=== PATIENT | male | born 1980 | race Caucasian/White ===

== ENCOUNTER 2022-12-10 15:29 | Inpatient (IN) | payer MEDICARE, MEDICAID ==
[~2022-12-10] VITALS: Ht 177.8 cm; Wt 88.3 kg
[~2022-12-10 15:29] MED LIST: PALI6TAB15 PO
[2022-12-10 17:43] LABS: BASOPHILS % (AUTO) 0.7 % (0.0-2.0); EOSINOPHILS % (AUTO) 1.8 % (1.0-6.0); HEMATOCRIT 34.3 % (41-53); HEMOGLOBIN 11.3 g/dL (13.5-17.5); LYMPHOCYTES # (AUTO) 1.9 K/uL (1.0-4.8); LYMPHOCYTES % (AUTO) 10.9 % (22.0-44.0); MEAN CORPUSCULAR HEMOGLOBIN 28.8 pg (26.0-34.0); MEAN CORPUSCULAR VOLUME 87 fL (80-100); MONOCYTES # (AUTO) 1.4 K/uL (0.1-1.0); MONOCYTES % (AUTO) 8.3 % (2.0-9.0); NEUTROPHILS # (AUTO) 13.3 K/uL (1.8-7.7); NEUTROPHILS % (AUTO) 78.3 % (40.0-70.0); PLATELET COUNT (AUTO) 483 K/uL (150-450); RED BLOOD CELL COUNT(AUTO) 3.94 MIL/uL (4.50-5.90); RED CELL DISTRIBUTION WIDTH 14.8 % (11.5-14.5)
[2022-12-10 17:51] LABS: ANION GAP 7 mmol/L (8-16); CALCIUM, TOTAL 9.1 mg/dL (8.8-10.5); CARBON DIOXIDE 27 mmol/L (22-29); CHLORIDE 102 mmol/L (98-107); CREATININE 0.92 mg/dL (0.60-1.30); GLOMERULAR FILTR. RATE CALC > 60 mL/min (>60); GLUCOSE,RANDOM 137 mg/dL (70-110); POTASSIUM 3.1 mmol/L (3.5-5.1); SODIUM SERUM 136 mmol/L (136-145)
[2022-12-10 17:57] LABS: ALANINE AMINOTRANSFERASE 12 U/L (12-78); ALBUMIN 2.4 g/dL (3.4-5.0); ALKALINE PHOSPHATASE 70 U/L (46-116); ASPARTATE AMINOTRANSFERASE 14 U/L (15-37); BILIRUBIN,TOTAL 0.2 mg/dL (0.1-1.0); TOTAL PROTEIN, SERUM 7.4 g/dL (6.4-8.2)
[2022-12-10 18:01] LABS: COVID AG,FIA SOURCE NASAL SWAB
[2022-12-10] MEDS ORDERED: SODIUM,POTASSIUM PHOSPHATES POWDER PACKET PO ONE (19:00)
[2022-12-10] MEDS ORDERED: HALOPERIDOL 5 MG TABLET PO ONE (19:00)
[2022-12-10] MEDS ORDERED: LORazepam 1 MG TABLET PO ONE (19:00)
[2022-12-10] MEDS ORDERED: DiphenhydrAMINE HCL 25 MG CAPSULE PO ONE (19:00)
[2022-12-10] MEDS ORDERED: DiphenhydrAMINE HCL 50 MG/ML VIAL IM ONE (19:30)
[2022-12-10] MEDS ORDERED: HALOPERIDOL LACTATE 5 MG/ML VIAL IM ONE (19:30)
[2022-12-10] MEDS ORDERED: POTASSIUM CHLORIDE 20 MEQ ER TABLET PO ONE ×2 (19:30→21:45)
[2022-12-10] MEDS ORDERED: LORazepam 2 MG/ML VIAL IM ONE (19:30)
[2022-12-10] MEDS ORDERED: ZOLPIDEM TARTRATE 10 MG TABLET PO PRN (20:00)
[2022-12-11] MEDS: CEPHALEXIN MONOHYDRATE 500 MG CAPSULE PO SCH ×2 (06:53)
[2022-12-11 19:16] VITALS: BP 104/69; PULSE 103
[2022-12-11 23:00] VITALS: RESP 18
[2022-12-11] MEDS ORDERED: HALOPERIDOL LACTATE 5 MG/ML VIAL IM ONE (23:15)
[2022-12-11] MEDS ORDERED: LORazepam 2 MG/ML VIAL IM ONE (23:15)
[2022-12-11] MEDS ORDERED: DiphenhydrAMINE HCL 50 MG/ML VIAL IM ONE (23:15)
[2022-12-12] MEDS ORDERED: ONDANSETRON HCL 4 MG TABLET PO PRN (08:00)
[2022-12-12] MEDS ORDERED: MAGNESIUM HYDROXIDE SUSPENSION 30 ML UDCUP PO PRN (08:00)
[2022-12-12] MEDS ORDERED: GuaiFENesin/D-METHORPHAN [SUGAR-FREE] 200-20MG/10 ML SYRUP UDCUP PO PRN (08:00)
[2022-12-12] MEDS ORDERED: IBUPROFEN 400 MG TABLET PO PRN (08:00)
[2022-12-12] MEDS ORDERED: DOCUSATE SODIUM 100 MG CAPSULE PO PRN (08:00)
[2022-12-12] MEDS ORDERED: LOPERAMIDE HCL 2 MG CAPSULE PO PRN (08:00)
[2022-12-12] MEDS ORDERED: PETROLATUM,WHITE 28 GM JELLY TP PRN (08:00)
[2022-12-12] MEDS ORDERED: CloNIDine HCL 0.1 MG TABLET PO PRN (08:00)
[2022-12-12] MEDS ORDERED: ACETAMINOPHEN 325 MG TABLET PO PRN (08:00)
[2022-12-12] MEDS ORDERED: MAG HYDROX/AL HYDROX/SIMETH ES 30 ML SUSPENSION UDCUP PO PRN (08:00)
[2022-12-12] MEDS ORDERED: ALBUTEROL SULFATE HFA 90 MCG/PUFF 8 GM INHALER IH PRN (08:00)
[2022-12-12] MEDS: CEPHALEXIN MONOHYDRATE 500 MG CAPSULE PO SCH ×3 (08:41→16:32)
[2022-12-12] MEDS ORDERED: DIVA500T53 PO (12:07)
[2022-12-12] MEDS: RisperiDONE 2 MG TABLET PO SCH ×2 (12:49→21:00)
[2022-12-12] MEDS: DIVALPROEX SODIUM 500 MG ER TABLET PO SCH ×2 (12:49→21:00)
[2022-12-12] MEDS ORDERED: LORazepam 2 MG/ML VIAL IM ONE ×2 (16:45→19:30)
[2022-12-12] MEDS ORDERED: DiphenhydrAMINE HCL 50 MG/ML VIAL IM ONE ×2 (16:45→19:30)
[2022-12-12] MEDS ORDERED: HALOPERIDOL LACTATE 5 MG/ML VIAL IM ONE ×2 (16:45→19:30)
[2022-12-12] MEDS: NICOTINE 14 MG/24 HOUR PATCH TD PRN (17:05)
[2022-12-12 20:22] VITALS: RESP 20
[2022-12-13 08:40] VITALS: RESP 18
[2022-12-13] MEDS: RisperiDONE 2 MG TABLET PO SCH ×2 (08:51→21:00)
[2022-12-13] MEDS: DIVALPROEX SODIUM 500 MG ER TABLET PO SCH ×2 (08:51→21:00)
[2022-12-13] MEDS: CEPHALEXIN MONOHYDRATE 500 MG CAPSULE PO SCH ×3 (08:51→16:59)
[2022-12-13] MEDS: LORazepam 2 MG TABLET PO PRN (08:51)
[2022-12-13] MEDS ORDERED: HALOPERIDOL LACTATE 5 MG/ML VIAL ONE (17:06)
[2022-12-13] MEDS ORDERED: LORazepam 2 MG/ML VIAL ONE (17:06)
[2022-12-13] MEDS ORDERED: DiphenhydrAMINE HCL 50 MG/ML VIAL ONE (17:06)
[2022-12-13] MEDS ORDERED: HALOPERIDOL LACTATE 5 MG/ML VIAL IM ONE (17:15)
[2022-12-13] MEDS ORDERED: LORazepam 2 MG/ML VIAL IM ONE (17:15)
[2022-12-13] MEDS ORDERED: DiphenhydrAMINE HCL 50 MG/ML VIAL IM ONE (17:15)
[2022-12-13 20:01] VITALS: RESP 20
[2022-12-14 08:25] VITALS: RESP 18; TEMP 98.2
[2022-12-14] MEDS: LORazepam 2 MG TABLET PO PRN ×2 (11:07→18:26)
[2022-12-14] MEDS: HALOPERIDOL 5 MG TABLET PO PRN ×2 (11:08→18:27)
[2022-12-14] MEDS: CEPHALEXIN MONOHYDRATE 500 MG CAPSULE PO SCH ×3 (11:08→18:26)
[2022-12-14] MEDS: DIVALPROEX SODIUM 500 MG ER TABLET PO SCH ×2 (11:08→20:39)
[2022-12-14] MEDS: RisperiDONE 2 MG TABLET PO SCH ×2 (11:08→20:40)
[2022-12-14] MEDS: NICOTINE 14 MG/24 HOUR PATCH TD PRN (17:53)
[2022-12-14] MEDS ORDERED: HALOPERIDOL LACTATE 5 MG/ML VIAL IM ONE (20:00)
[2022-12-14] MEDS ORDERED: DiphenhydrAMINE HCL 50 MG/ML VIAL IM ONE (20:00)
[2022-12-14] MEDS ORDERED: LORazepam 2 MG/ML VIAL IM ONE (20:00)
[2022-12-14 20:31] VITALS: RESP 20
[2022-12-15 08:21] VITALS: RESP 18; TEMP 96.9
[2022-12-15] MEDS: DIVALPROEX SODIUM 500 MG ER TABLET PO SCH ×2 (09:18→20:42)
[2022-12-15] MEDS: CEPHALEXIN MONOHYDRATE 500 MG CAPSULE PO SCH ×3 (09:18→17:18)
[2022-12-15] MEDS: RisperiDONE 2 MG TABLET PO SCH ×2 (09:18→20:42)
[2022-12-15] MEDS: LORazepam 2 MG TABLET PO PRN ×3 (10:02→20:42)
[2022-12-15] MEDS: HALOPERIDOL 5 MG TABLET PO PRN ×2 (10:02→15:13)
[2022-12-15] MEDS: NICOTINE 14 MG/24 HOUR PATCH TD PRN (16:55)
[2022-12-15 20:17] VITALS: RESP 20
[2022-12-16] MEDS: HALOPERIDOL 5 MG TABLET PO PRN ×4 (03:39→18:09)
[2022-12-16] MEDS: LORazepam 2 MG TABLET PO PRN ×4 (03:39→18:08)
[2022-12-16] MEDS: CEPHALEXIN MONOHYDRATE 500 MG CAPSULE PO SCH ×3 (07:41→18:09)
[2022-12-16] MEDS: RisperiDONE 2 MG TABLET PO SCH ×2 (07:42→20:39)
[2022-12-16] MEDS: DIVALPROEX SODIUM 500 MG ER TABLET PO SCH ×2 (07:42→20:39)
[2022-12-16 09:24] VITALS: RESP 18
[2022-12-16] MEDS ORDERED: LORazepam 2 MG/ML VIAL ONE (16:10)
[2022-12-16] MEDS ORDERED: HALOPERIDOL LACTATE 5 MG/ML VIAL ONE (16:10)
[2022-12-16] MEDS ORDERED: HALOPERIDOL LACTATE 5 MG/ML VIAL IM ONE (16:15)
[2022-12-16] MEDS ORDERED: LORazepam 2 MG/ML VIAL IM ONE (16:15)
[2022-12-16] MEDS ORDERED: DiphenhydrAMINE HCL 50 MG/ML VIAL IM ONE (16:15)
[2022-12-16] MEDS ORDERED: RISP2TAB86 PO (19:19)
[2022-12-16] MEDS ORDERED: CEPH-558 PO (19:19)
[2022-12-16] MEDS ORDERED: DIVA500T69 PO (19:19)
[2022-12-16 20:07] VITALS: RESP 18
[2022-12-17] MEDS: RisperiDONE 2 MG TABLET PO SCH (08:21)
[2022-12-17] MEDS: DIVALPROEX SODIUM 500 MG ER TABLET PO SCH (08:22)
[2022-12-17] MEDS: CEPHALEXIN MONOHYDRATE 500 MG CAPSULE PO SCH ×3 (08:22→17:00)
== END 2022-12-17 17:59 | disposition home or self-care (01) | DRG 885 ==
LOC: EMS 15:31 → 3EC 12-11 21:02
PROVIDERS: ADMIT Psychiatry & Neurology Psychiatry; ATTEND Psychiatry & Neurology Psychiatry
DX: F25.0 Schizoaffective disorder, bipolar type (principal); D72.829 Elevated white blood cell count, unspecified; F43.10 Post-traumatic stress disorder, unspecified; G47.00 Insomnia, unspecified; Z20.822 Contact with and (suspected) exposure to COVID-19; F41.9 Anxiety disorder, unspecified; F19.10 Other psychoactive substance abuse, uncomplicated; D75.839 Thrombocytosis, unspecified; E87.6 Hypokalemia; D64.9 Anemia, unspecified; Z79.899 Other long term (current) drug therapy; Z59.00 Homelessness unspecified
CPT/HCPCS: 71045; 80053; 85025; 99285; G0480; J1200; J1630; J2060

== ENCOUNTER 2022-12-29 14:21 | Emergency (ER) | payer MEDICARE, OTHER ==
[~2022-12-29] VITALS: Ht 182.9 cm; Wt 90.9 kg
[~2022-12-29 14:21] MED LIST changes: +CEPH-558 PO; +DIVA500T69 PO; -PALI6TAB15 PO; +RISP2TAB86 PO
[2022-12-29 14:40] VITALS: TEMP 98.6
[2022-12-29 15:41] LABS: COVID AG,FIA SOURCE NASAL SWAB
[2022-12-29 15:45] LABS: BASOPHILS % (AUTO) 3.9 % (0.0-2.0); EOSINOPHILS % (AUTO) 4.3 % (1.0-6.0); HEMATOCRIT 38.8 % (41-53); HEMOGLOBIN 12.6 g/dL (13.5-17.5); LYMPHOCYTES # (AUTO) 2.6 K/uL (1.0-4.8); LYMPHOCYTES % (AUTO) 34.7 % (22.0-44.0); MEAN CORPUSCULAR HEMOGLOBIN 28.6 pg (26.0-34.0); MEAN CORPUSCULAR HGB CONC 32.5 G/dL (31.0-37.0); MEAN CORPUSCULAR VOLUME 88 fL (80-100); MONOCYTES # (AUTO) 0.9 K/uL (0.1-1.0); NEUTROPHILS # (AUTO) 3.3 K/uL (1.8-7.7); NEUTROPHILS % (AUTO) 45.1 % (40.0-70.0); PLATELET COUNT (AUTO) 269 K/uL (150-450); RED BLOOD CELL COUNT(AUTO) 4.41 MIL/uL (4.50-5.90)
[2022-12-29 15:57] LABS: ANION GAP 9 mmol/L (8-16); CARBON DIOXIDE 29 mmol/L (22-29); CHLORIDE 100 mmol/L (98-107); CREATININE 0.98 mg/dL (0.60-1.30); GLOMERULAR FILTR. RATE CALC > 60 mL/min (>60); GLUCOSE,RANDOM 98 mg/dL (70-110); SODIUM SERUM 138 mmol/L (136-145)
[2022-12-29 16:02] LABS: ALANINE AMINOTRANSFERASE 23 U/L (12-78); ALBUMIN 3.2 g/dL (3.4-5.0); ALKALINE PHOSPHATASE 96 U/L (46-116); ASPARTATE AMINOTRANSFERASE 25 U/L (15-37); BILIRUBIN,TOTAL 0.3 mg/dL (0.1-1.0); TOTAL PROTEIN, SERUM 7.5 g/dL (6.4-8.2)
[2022-12-29 17:00] VITALS: BP 122/77; PULSE 84; RESP 18
== END 2022-12-29 17:46 | disposition home or self-care (01) ==
LOC: EMS 15:03
DX: F25.9 Schizoaffective disorder, unspecified (principal); R53.1 Weakness; F17.210 Nicotine dependence, cigarettes, uncomplicated; F15.90 Other stimulant use, unspecified, uncomplicated; Z20.822 Contact with and (suspected) exposure to COVID-19; Z59.00 Homelessness unspecified
CPT/HCPCS: 99284; 87426; 80053; 84484; 85025; 36415; 93005; G0480

== ENCOUNTER 2023-01-05 10:32 | Emergency (ER) | payer MEDICARE, OTHER ==
[~2023-01-05] VITALS: Ht 172.7 cm; Wt 72.3 kg
[2023-01-05 10:45] VITALS: BP 112/70; PULSE 116; RESP 20; TEMP 97.7
== END 2023-01-05 14:08 | disposition home or self-care (01) ==
LOC: EMS 10:33
DX: M79.672 Pain in left foot (principal); M79.671 Pain in right foot; F20.9 Schizophrenia, unspecified; F17.210 Nicotine dependence, cigarettes, uncomplicated; F15.90 Other stimulant use, unspecified, uncomplicated; Z98.890 Other specified postprocedural states; Z59.00 Homelessness unspecified
CPT/HCPCS: 99283; Z7502

== ENCOUNTER 2023-01-19 11:22 | Inpatient (IN) | payer MEDICARE, MEDICAID ==
[~2023-01-19] VITALS: Ht 182.9 cm; Wt 87.0 kg
[~2023-01-19 11:22] MED LIST changes: -CEPH-558 PO
[2023-01-19] MEDS ORDERED: HALOPERIDOL LACTATE 5 MG/ML VIAL IM ONE (12:00)
[2023-01-19] MEDS ORDERED: LORazepam 2 MG/ML VIAL IM ONE (12:00)
[2023-01-19] MEDS ORDERED: DiphenhydrAMINE HCL 50 MG/ML VIAL IM ONE (12:00)
[2023-01-19 13:27] LABS: HEMOGLOBIN 11.7 g/dL (13.5-17.5); LYMPHOCYTES # (AUTO) 2.3 K/uL (1.0-4.8); NEUTROPHILS # (AUTO) 4.6 K/uL (1.8-7.7)
[2023-01-19 13:31] LABS: BASOPHILS % (AUTO) 0.8 % (0.0-2.0); EOSINOPHILS % (AUTO) 0.8 % (1.0-6.0); HEMATOCRIT 35.4 % (41-53); LYMPHOCYTES % (AUTO) 27.8 % (22.0-44.0); MEAN CORPUSCULAR HEMOGLOBIN 28.7 pg (26.0-34.0); MEAN CORPUSCULAR HGB CONC 33.1 G/dL (31.0-37.0); MEAN CORPUSCULAR VOLUME 87 fL (80-100); MONOCYTES # (AUTO) 1.2 K/uL (0.1-1.0); MONOCYTES % (AUTO) 14.5 % (2.0-9.0); NEUTROPHILS % (AUTO) 56.1 % (40.0-70.0); PLATELET COUNT (AUTO) 302 K/uL (150-450); RED BLOOD CELL COUNT(AUTO) 4.07 MIL/uL (4.50-5.90); RED CELL DISTRIBUTION WIDTH 14.9 % (11.5-14.5)
[2023-01-19 13:37] LABS: ANION GAP 5 mmol/L (8-16); CALCIUM, TOTAL 8.7 mg/dL (8.8-10.5); CARBON DIOXIDE 27 mmol/L (22-29); CHLORIDE 103 mmol/L (98-107); CREATININE 0.88 mg/dL (0.60-1.30); GLOMERULAR FILTR. RATE CALC > 60 mL/min (>60); GLUCOSE,RANDOM 98 mg/dL (70-110); POTASSIUM 3.1 mmol/L (3.5-5.1); SODIUM SERUM 135 mmol/L (136-145)
[2023-01-19 13:43] LABS: ALANINE AMINOTRANSFERASE 30 U/L (12-78); ALBUMIN 3.1 g/dL (3.4-5.0); ALKALINE PHOSPHATASE 76 U/L (46-116); ASPARTATE AMINOTRANSFERASE 27 U/L (15-37); BILIRUBIN,TOTAL 0.3 mg/dL (0.1-1.0); TOTAL PROTEIN, SERUM 6.8 g/dL (6.4-8.2)
[2023-01-19 19:46] LABS: COVID AG,FIA SOURCE NASAL SWAB
[2023-01-19] MEDS: LORazepam 2 MG TABLET PO PRN ×2 (20:27→20:36)
[2023-01-19] MEDS: HALOPERIDOL 5 MG TABLET PO PRN ×2 (20:28→20:36)
[2023-01-19] MEDS ORDERED: POTASSIUM CHLORIDE 20 MEQ ER TABLET PO ONE (21:00)
[2023-01-19 22:25] VITALS: BP 114/69; PULSE 89; RESP 17; TEMP 97; O2SAT 100
[2023-01-20] MEDS: AMOX TR/POT CLAV 500 MG/125 MG TABLET PO SCH ×2 (08:09→17:02)
[2023-01-20] MEDS: LORazepam 2 MG TABLET PO PRN (08:10)
[2023-01-20] MEDS: HALOPERIDOL 5 MG TABLET PO PRN (08:10)
[2023-01-20] MEDS ORDERED: TETANUS/DIPHTHERIA TOXOID [TDVAX] [ADULT] 0.5 ML VIAL IM. ONE (09:00)
[2023-01-20 09:05] VITALS: BP 101/61; PULSE 74; RESP 17; TEMP 97.2; O2SAT 99
[2023-01-20] MEDS: DIVALPROEX SODIUM 500 MG DR TABLET PO SCH ×2 (09:43→21:00)
[2023-01-20] MEDS: RisperiDONE 2 MG TABLET PO SCH ×2 (09:43→21:00)
[2023-01-20 21:54] VITALS: BP 119/78; PULSE 85; RESP 18; TEMP 98.6; O2SAT 97
[2023-01-21] MEDS: AMOX TR/POT CLAV 500 MG/125 MG TABLET PO SCH ×2 (08:42→16:15)
[2023-01-21] MEDS: DIVALPROEX SODIUM 500 MG DR TABLET PO SCH ×2 (08:42→20:50)
[2023-01-21] MEDS: RisperiDONE 2 MG TABLET PO SCH ×2 (08:43→20:50)
[2023-01-21] MEDS: LORazepam 2 MG TABLET PO PRN ×2 (08:43→16:51)
[2023-01-21 09:04] VITALS: BP 94/55; PULSE 90; RESP 19; TEMP 97.2; O2SAT 96
[2023-01-21] MEDS: HALOPERIDOL 5 MG TABLET PO PRN (16:51)
[2023-01-21 22:02] VITALS: RESP 18
[2023-01-22] MEDS: RisperiDONE 2 MG TABLET PO SCH ×2 (09:50→20:45)
[2023-01-22] MEDS: LORazepam 2 MG TABLET PO PRN ×2 (09:50→15:31)
[2023-01-22] MEDS: AMOX TR/POT CLAV 500 MG/125 MG TABLET PO SCH ×2 (09:50→16:12)
[2023-01-22] MEDS: DIVALPROEX SODIUM 500 MG DR TABLET PO SCH ×2 (09:50→20:45)
[2023-01-22] MEDS: HALOPERIDOL 5 MG TABLET PO PRN (15:31)
[2023-01-22] MEDS: ZOLPIDEM TARTRATE 10 MG TABLET PO PRN (21:00)
[2023-01-23] MEDS: AMOX TR/POT CLAV 500 MG/125 MG TABLET PO SCH ×3 (08:12→17:00)
[2023-01-23] MEDS: RisperiDONE 2 MG TABLET PO SCH ×2 (08:13→21:00)
[2023-01-23] MEDS: LORazepam 2 MG TABLET PO PRN ×2 (08:13→12:53)
[2023-01-23] MEDS: DIVALPROEX SODIUM 500 MG DR TABLET PO SCH ×2 (08:14→21:00)
[2023-01-23 08:20] VITALS: BP 99/66; PULSE 101; RESP 18; TEMP 97; O2SAT 99
[2023-01-23] MEDS: HALOPERIDOL 5 MG TABLET PO PRN (12:54)
[2023-01-23] MEDS ORDERED: DiphenhydrAMINE HCL 50 MG/ML VIAL IM ONE (14:45)
[2023-01-23] MEDS ORDERED: LORazepam 2 MG/ML VIAL IM ONE (14:45)
[2023-01-23] MEDS ORDERED: HALOPERIDOL LACTATE 5 MG/ML VIAL IM ONE (14:45)
[2023-01-23] MEDS ORDERED: HALOPERIDOL LACTATE 5 MG/ML VIAL ONE (14:47)
[2023-01-23] MEDS ORDERED: DiphenhydrAMINE HCL 50 MG/ML VIAL ONE (14:48)
[2023-01-23] MEDS ORDERED: LORazepam 2 MG/ML VIAL ONE (14:48)
[2023-01-23 21:18] VITALS: RESP 20; TEMP 98
[2023-01-24] MEDS: HALOPERIDOL 5 MG TABLET PO PRN ×2 (08:13→15:47)
[2023-01-24] MEDS: RisperiDONE 2 MG TABLET PO SCH ×2 (08:13→20:38)
[2023-01-24] MEDS: AMOX TR/POT CLAV 500 MG/125 MG TABLET PO SCH ×2 (08:13→18:03)
[2023-01-24] MEDS: LORazepam 2 MG TABLET PO PRN ×3 (08:13→16:18)
[2023-01-24] MEDS: DIVALPROEX SODIUM 500 MG DR TABLET PO SCH ×2 (08:13→20:38)
[2023-01-24 08:14] VITALS: RESP 18
[2023-01-24] MEDS: ZOLPIDEM TARTRATE 10 MG TABLET PO PRN (21:03)
[2023-01-24 22:12] VITALS: RESP 18
[2023-01-25 08:09] VITALS: RESP 17
[2023-01-25] MEDS: RisperiDONE 2 MG TABLET PO SCH (10:02)
[2023-01-25] MEDS: AMOX TR/POT CLAV 500 MG/125 MG TABLET PO SCH ×2 (10:02→17:00)
[2023-01-25] MEDS: DIVALPROEX SODIUM 500 MG DR TABLET PO SCH (10:02)
[2023-01-25] MEDS: LORazepam 2 MG TABLET PO PRN (10:03)
[2023-01-25] MEDS ORDERED: AMOX1TAB15 PO (10:20)
[2023-01-25] MEDS ORDERED: DIVA-112 PO (13:20)
[2023-01-25] MEDS ORDERED: RISP2TAB86 PO (13:20)
== END 2023-01-25 11:00 | disposition home or self-care (01) | DRG 885 ==
LOC: EMS 11:34 → 3EC 16:56
PROVIDERS: ADMIT Psychiatry & Neurology Child & Adolescent Psychiatry; ATTEND Psychiatry & Neurology Child & Adolescent Psychiatry
PROC: 3E0234Z Introduction of Serum, Toxoid and Vaccine into Muscle, Percutaneous Approach (ICD-10-PCS; principal; 2023-01-19)
DX: F20.0 Paranoid schizophrenia (principal); E87.6 Hypokalemia; F19.10 Other psychoactive substance abuse, uncomplicated; F10.10 Alcohol abuse, uncomplicated; F43.10 Post-traumatic stress disorder, unspecified; Z20.822 Contact with and (suspected) exposure to COVID-19; D64.9 Anemia, unspecified; F17.210 Nicotine dependence, cigarettes, uncomplicated; F32.A Depression, unspecified; Z79.899 Other long term (current) drug therapy
CPT/HCPCS: 80053; 84132; 85025; 90714; 99291; G0480; J1200; J1630; J2060

== ENCOUNTER 2023-01-27 21:29 | Emergency (ER) | payer MEDICARE, OTHER ==
[~2023-01-27] VITALS: Ht 182.9 cm; Wt 84.0 kg
[~2023-01-27 21:29] MED LIST changes: +AMOX1TAB15 PO; +DIVA-112 PO
[2023-01-27 22:00] VITALS: BP 111/64; PULSE 115; RESP 18; TEMP 98.1
== END 2023-01-27 22:15 | disposition left against medical advice (07) ==
LOC: EMS 21:30
DX: R44.0 Auditory hallucinations (principal); Z53.21 Procedure and treatment not carried out due to patient leaving prior to being seen by health care provider
CPT/HCPCS: 99281; Z7502

== ENCOUNTER 2023-01-28 09:01 | Emergency (ER) | payer MEDICARE, OTHER ==
[~2023-01-28] VITALS: Ht 177.8 cm; Wt 79.5 kg
[2023-01-28] MEDS ORDERED: RABIES IMMUNE GLOBULIN/PF 300 UNITS/ML 5 ML VIAL IM. ONE (09:45)
[2023-01-28] MEDS ORDERED: RABIES VACCINE, HUMAN DIPLOID/PF 2.5 UNITS/ML VIAL IM. ONE (09:45)
[2023-01-28 09:55] LABS: BASOPHILS % (AUTO) 0.5 % (0.0-2.0); EOSINOPHILS % (AUTO) 0.8 % (1.0-6.0); HEMOGLOBIN 13.3 g/dL (13.5-17.5); LYMPHOCYTES # (AUTO) 1.9 K/uL (1.0-4.8); LYMPHOCYTES % (AUTO) 17.7 % (22.0-44.0); MEAN CORPUSCULAR HGB CONC 32.5 G/dL (31.0-37.0); MEAN CORPUSCULAR VOLUME 86 fL (80-100); MONOCYTES # (AUTO) 0.9 K/uL (0.1-1.0); MONOCYTES % (AUTO) 8.7 % (2.0-9.0); NEUTROPHILS # (AUTO) 7.7 K/uL (1.8-7.7); NEUTROPHILS % (AUTO) 72.3 % (40.0-70.0); PLATELET COUNT (AUTO) 320 K/uL (150-450); RED BLOOD CELL COUNT(AUTO) 4.76 MIL/uL (4.50-5.90); RED CELL DISTRIBUTION WIDTH 15.1 % (11.5-14.5)
[2023-01-28 10:04] LABS: ANION GAP 8 mmol/L (8-16); CALCIUM, TOTAL 9.2 mg/dL (8.8-10.5); CARBON DIOXIDE 27 mmol/L (22-29); CHLORIDE 100 mmol/L (98-107); CREATININE 0.88 mg/dL (0.60-1.30); GLOMERULAR FILTR. RATE CALC > 60 mL/min (>60); GLUCOSE,RANDOM 110 mg/dL (70-110); POTASSIUM 3.6 mmol/L (3.5-5.1); SODIUM SERUM 135 mmol/L (136-145)
[2023-01-28 10:13] LABS: ALANINE AMINOTRANSFERASE 17 U/L (12-78); ALBUMIN 3.4 g/dL (3.4-5.0); ALKALINE PHOSPHATASE 94 U/L (46-116); ASPARTATE AMINOTRANSFERASE 36 U/L (15-37); BILIRUBIN,TOTAL 0.2 mg/dL (0.1-1.0); TOTAL PROTEIN, SERUM 7.8 g/dL (6.4-8.2)
[2023-01-28 10:56] LABS: AMPHET/METH SCREEN,URINE POSITIVE (NEGATIVE); BARBITURATE SCREEN, URINE NEGATIVE (NEGATIVE); BENZODIAZEPINES SCREEN,URINE NEGATIVE (NEGATIVE); CANNABINOID SCREEN,URINE NEGATIVE (NEGATIVE); COCAINE SCREEN,URINE NEGATIVE (NEGATIVE); METHADONE SCREEN, URINE NEGATIVE (NEGATIVE); OPIATE SCREEN,URINE NEGATIVE (NEGATIVE); PHENCYCLIDINE SCREEN,URINE NEGATIVE (NEGATIVE)
[2023-01-28 11:59] VITALS: TEMP 98
[2023-01-28 12:00] VITALS: BP 121/87; PULSE 98; RESP 18
== END 2023-01-28 12:37 | disposition home or self-care (01) ==
LOC: EMS 09:01
DX: S61.452A Open bite of left hand, initial encounter (principal); F32.A Depression, unspecified; F15.10 Other stimulant abuse, uncomplicated; F25.0 Schizoaffective disorder, bipolar type; F17.210 Nicotine dependence, cigarettes, uncomplicated; Z23 Encounter for immunization; W54.0XXA Bitten by dog, initial encounter; Y93.89 Activity, other specified; Y92.89 Other specified places as the place of occurrence of the external cause; Y99.8 Other external cause status
CPT/HCPCS: 90375; 90675; 99283; 80053; 85025; 36415; 80307 ×2; G0480

== ENCOUNTER 2023-01-29 21:26 | Emergency (ER) | payer MEDICARE, OTHER ==
[~2023-01-29] VITALS: Ht 182.9 cm; Wt 88.6 kg
[~2023-01-29 21:26] MED LIST changes: -AMOX1TAB15 PO; -DIVA500T69 PO
[2023-01-29 21:45] VITALS: BP 132/77; PULSE 98; RESP 20; TEMP 97.9
[2023-01-30] MEDS ORDERED: RisperiDONE 1 MG TABLET PO ONE (01:45)
== END 2023-01-30 05:42 | disposition home or self-care (01) ==
LOC: EMS 21:27
DX: F32.A Depression, unspecified (principal); F20.9 Schizophrenia, unspecified; F17.210 Nicotine dependence, cigarettes, uncomplicated; F15.90 Other stimulant use, unspecified, uncomplicated; Z59.00 Homelessness unspecified
CPT/HCPCS: 99284; Z7502; Z7610

== ENCOUNTER 2023-02-04 02:43 | Emergency (ER) | payer MEDICARE, OTHER ==
[~2023-02-04] VITALS: Ht 182.9 cm; Wt 84.0 kg
[2023-02-04 03:32] LABS: BASOPHILS % (AUTO) 1.1 % (0.0-2.0); EOSINOPHILS % (AUTO) 0.5 % (1.0-6.0); HEMATOCRIT 38.1 % (41-53); HEMOGLOBIN 12.3 g/dL (13.5-17.5); LYMPHOCYTES # (AUTO) 1.9 K/uL (1.0-4.8); LYMPHOCYTES % (AUTO) 11.8 % (22.0-44.0); MEAN CORPUSCULAR HEMOGLOBIN 28.1 pg (26.0-34.0); MEAN CORPUSCULAR HGB CONC 32.5 G/dL (31.0-37.0); MEAN CORPUSCULAR VOLUME 87 fL (80-100); MONOCYTES # (AUTO) 1.2 K/uL (0.1-1.0); MONOCYTES % (AUTO) 7.4 % (2.0-9.0); NEUTROPHILS # (AUTO) 12.5 K/uL (1.8-7.7); NEUTROPHILS % (AUTO) 79.2 % (40.0-70.0); PLATELET COUNT (AUTO) 295 K/uL (150-450); RED CELL DISTRIBUTION WIDTH 15.6 % (11.5-14.5)
[2023-02-04 03:38] LABS: COVID AG,FIA SOURCE NASOPHARYNGEAL
[2023-02-04 03:39] LABS: ANION GAP 13 mmol/L (8-16); CALCIUM, TOTAL 9.1 mg/dL (8.8-10.5); CARBON DIOXIDE 23 mmol/L (22-29); CHLORIDE 101 mmol/L (98-107); CREATININE 1.02 mg/dL (0.60-1.30); GLOMERULAR FILTR. RATE CALC > 60 mL/min (>60); GLUCOSE,RANDOM 111 mg/dL (70-110); POTASSIUM 3.6 mmol/L (3.5-5.1); SODIUM SERUM 137 mmol/L (136-145)
[2023-02-04 03:45] LABS: ALANINE AMINOTRANSFERASE 19 U/L (12-78); ALBUMIN 3.3 g/dL (3.4-5.0); ALKALINE PHOSPHATASE 87 U/L (46-116); ASPARTATE AMINOTRANSFERASE 16 U/L (15-37); BILIRUBIN,TOTAL 0.2 mg/dL (0.1-1.0)
[2023-02-04] MEDS ORDERED: LORazepam 2 MG TABLET PO ONE (04:15)
[2023-02-04 05:05] VITALS: TEMP 98.5
[2023-02-04] MEDS ORDERED: HALOPERIDOL 5 MG TABLET PO ONE (06:00)
[2023-02-04 06:07] VITALS: BP 122/87; PULSE 98; RESP 16
== END 2023-02-04 06:40 | disposition home or self-care (01) ==
LOC: EMS 02:44
DX: F20.9 Schizophrenia, unspecified (principal); F32.A Depression, unspecified; F17.210 Nicotine dependence, cigarettes, uncomplicated; F15.90 Other stimulant use, unspecified, uncomplicated; Z20.822 Contact with and (suspected) exposure to COVID-19
CPT/HCPCS: 99284; 87426; 80053; 85025; 36415; G0480

== ENCOUNTER 2023-02-05 11:40 | Inpatient (IN) | payer MEDICARE, OTHER ==
[~2023-02-05] VITALS: Ht 182.9 cm; Wt 99.0 kg
[2023-02-05] MEDS ORDERED: LORazepam 2 MG TABLET PO ONE (13:45)
[2023-02-05] MEDS ORDERED: HALOPERIDOL 5 MG TABLET PO ONE (13:45)
[2023-02-05] MEDS ORDERED: DiphenhydrAMINE HCL 25 MG CAPSULE PO ONE (13:45)
[2023-02-05] MEDS ORDERED: ZOLPIDEM TARTRATE 10 MG TABLET PO PRN (14:00)
[2023-02-05] MEDS ORDERED: DiphenhydrAMINE HCL 50 MG/ML VIAL IM ONE (14:00)
[2023-02-05] MEDS ORDERED: HALOPERIDOL LACTATE 5 MG/ML VIAL IM ONE (14:00)
[2023-02-05] MEDS ORDERED: LORazepam 2 MG/ML VIAL IM ONE (14:00)
[2023-02-05 15:01] LABS: COVID AG,FIA SOURCE NASOPHARYNGEAL
[2023-02-05 15:49] LABS: BASOPHILS % (AUTO) 0.8 % (0.0-2.0); EOSINOPHILS % (AUTO) 0.2 % (1.0-6.0); HEMATOCRIT 47.6 % (41-53); HEMOGLOBIN 15.2 g/dL (13.5-17.5); LYMPHOCYTES # (AUTO) 1.8 K/uL (1.0-4.8); LYMPHOCYTES % (AUTO) 13.4 % (22.0-44.0); MEAN CORPUSCULAR HEMOGLOBIN 27.7 pg (26.0-34.0); MEAN CORPUSCULAR HGB CONC 31.9 G/dL (31.0-37.0); MEAN CORPUSCULAR VOLUME 87 fL (80-100); MONOCYTES # (AUTO) 0.7 K/uL (0.1-1.0); NEUTROPHILS # (AUTO) 10.6 K/uL (1.8-7.7); NEUTROPHILS % (AUTO) 80.6 % (40.0-70.0); PLATELET COUNT (AUTO) 342 K/uL (150-450); RED BLOOD CELL COUNT(AUTO) 5.46 MIL/uL (4.50-5.90); RED CELL DISTRIBUTION WIDTH 15.8 % (11.5-14.5)
[2023-02-05 16:35] LABS: ANION GAP 16 mmol/L (8-16); CALCIUM, TOTAL 10.4 mg/dL (8.8-10.5); CARBON DIOXIDE 26 mmol/L (22-29); CHLORIDE 99 mmol/L (98-107); CREATININE 0.82 mg/dL (0.60-1.30); GLOMERULAR FILTR. RATE CALC > 60 mL/min (>60); GLUCOSE,RANDOM 96 mg/dL (70-110); POTASSIUM 4.2 mmol/L (3.5-5.1); SODIUM SERUM 141 mmol/L (136-145)
[2023-02-05 16:41] LABS: ALANINE AMINOTRANSFERASE 23 U/L (12-78); ALBUMIN 4.1 g/dL (3.4-5.0); ALKALINE PHOSPHATASE 113 U/L (46-116); ASPARTATE AMINOTRANSFERASE 23 U/L (15-37); BILIRUBIN,TOTAL 0.4 mg/dL (0.1-1.0)
[2023-02-05 18:54] VITALS: BP 130/81; PULSE 72; RESP 17; TEMP 98; O2SAT 97
[2023-02-05 20:42] VITALS: BP 128/78; PULSE 84; RESP 18; TEMP 98.2; O2SAT 97
[2023-02-06] MEDS: RisperiDONE 2 MG TABLET PO SCH ×2 (11:02→20:33)
[2023-02-06] MEDS: DIVALPROEX SODIUM 500 MG DR TABLET PO SCH ×2 (11:04→20:33)
[2023-02-06 14:32] VITALS: RESP 16
[2023-02-06] MEDS: HALOPERIDOL 5 MG TABLET PO PRN (16:17)
[2023-02-06] MEDS: LORazepam 2 MG TABLET PO PRN (16:17)
[2023-02-06 20:22] VITALS: BP 102/62; PULSE 95; RESP 18; TEMP 97.7; O2SAT 94
[2023-02-07] MEDS: RisperiDONE 2 MG TABLET PO SCH ×2 (08:04→20:13)
[2023-02-07] MEDS: DIVALPROEX SODIUM 500 MG DR TABLET PO SCH ×2 (08:04→20:13)
[2023-02-07 08:12] VITALS: BP 110/65; PULSE 95; RESP 16; TEMP 98.5; O2SAT 97
[2023-02-07] MEDS: HALOPERIDOL 5 MG TABLET PO PRN ×2 (08:15→16:07)
[2023-02-07] MEDS: LORazepam 2 MG TABLET PO PRN ×2 (08:15→16:07)
[2023-02-07 22:34] VITALS: RESP 18; O2SAT 97
[2023-02-08] MEDS: RisperiDONE 2 MG TABLET PO SCH (08:01)
[2023-02-08] MEDS: DIVALPROEX SODIUM 500 MG DR TABLET PO SCH (08:01)
[2023-02-08 08:12] VITALS: RESP 18
[2023-02-08] MEDS: HALOPERIDOL 5 MG TABLET PO PRN (09:48)
[2023-02-08] MEDS: LORazepam 2 MG TABLET PO PRN (09:48)
== END 2023-02-08 17:59 | disposition left against medical advice (07) | DRG 885 ==
LOC: EMS 11:40 → B3A 14:47
PROVIDERS: ADMIT Psychiatry & Neurology Child & Adolescent Psychiatry; ATTEND Psychiatry & Neurology Child & Adolescent Psychiatry
DX: F25.0 Schizoaffective disorder, bipolar type (principal); R45.851 Suicidal ideations; D64.9 Anemia, unspecified; D72.829 Elevated white blood cell count, unspecified; F15.10 Other stimulant abuse, uncomplicated; Z20.822 Contact with and (suspected) exposure to COVID-19; Z53.21 Procedure and treatment not carried out due to patient leaving prior to being seen by health care provider; F43.10 Post-traumatic stress disorder, unspecified; G47.00 Insomnia, unspecified; F41.9 Anxiety disorder, unspecified; F10.10 Alcohol abuse, uncomplicated; Z79.899 Other long term (current) drug therapy; Z91.51 Personal history of suicidal behavior; Z59.00 Homelessness unspecified
CPT/HCPCS: 80053; 85025; 99285; G0480; J1200; J1630; J2060

== ENCOUNTER 2023-02-08 15:08 | Emergency (ER) | payer MEDICARE, OTHER | END 2023-02-08 15:50 | disposition left against medical advice (07) | LOC: EMS 15:08 | DX: Z53.21 Procedure and treatment not carried out due to patient leaving prior to being seen by health care provider (principal) ==

== ENCOUNTER 2023-02-10 18:24 | Emergency (ER) | payer MEDICARE, OTHER ==
[~2023-02-10] VITALS: Ht 180.3 cm; Wt 79.5 kg
[2023-02-10 18:27] VITALS: BP 100/76; PULSE 106; RESP 20; TEMP 98.9
== END 2023-02-10 20:46 | disposition left against medical advice (07) ==
LOC: EMS 18:25
DX: Z53.21 Procedure and treatment not carried out due to patient leaving prior to being seen by health care provider (principal)
CPT/HCPCS: 99281; Z7502

== ENCOUNTER 2023-02-13 10:31 | Emergency (ER) | payer MEDICARE, OTHER ==
[~2023-02-13] VITALS: Ht 177.8 cm; Wt 75.0 kg
[2023-02-13 10:36] VITALS: TEMP 98.6
[2023-02-13 13:20] VITALS: BP 122/79; PULSE 94; RESP 16
[2023-02-13] MEDS ORDERED: LORazepam 1 MG TABLET PO ONE (13:30)
== END 2023-02-13 13:58 | disposition home or self-care (01) ==
LOC: EMS 10:31
DX: F20.9 Schizophrenia, unspecified (principal); M79.672 Pain in left foot; M79.671 Pain in right foot; F15.10 Other stimulant abuse, uncomplicated; F32.A Depression, unspecified; F17.210 Nicotine dependence, cigarettes, uncomplicated
CPT/HCPCS: 99283

== ENCOUNTER 2024-03-27 14:27 | Emergency (ER) | payer MEDICARE, OTHER ==
[~2024-03-27] VITALS: Ht 182.9 cm; Wt 95.5 kg
[~2024-03-27 14:27] MED LIST changes: +RISP-32 PO; -RISP2TAB86 PO
[2024-03-27 16:18] VITALS: BP 107/62; PULSE 74; RESP 17; TEMP 98; O2SAT 98
[2024-03-27] MEDS ORDERED: RISP1TAB48 PO (16:43)
[2024-03-27] MEDS ORDERED: QUET300T19 PO (16:43)
[2024-03-27] MEDS ORDERED: BUSP10TA23 PO (16:43)
[2024-03-27] MEDS: PERTUSS(ACELL),DIPH,TET/PF 0.5 ML SYRINGE [ADULT] IM. ONE (16:43)
[2024-03-27] MEDS ORDERED: PALI234D IM (16:43)
[2024-03-27] MEDS ORDERED: PRAZ2 PO (16:43)
[2024-03-27] MEDS: AMOX TR/POT CLAV 875 MG/125 MG TABLET PO ONE (16:44)
== END 2024-03-27 19:21 | disposition home or self-care (01) ==
LOC: EMS 14:27
DX: S62.306A Unspecified fracture of fifth metacarpal bone, right hand, initial encounter for closed fracture (principal); F20.9 Schizophrenia, unspecified; F17.290 Nicotine dependence, other tobacco product, uncomplicated; F32.A Depression, unspecified; Z65.3 Problems related to other legal circumstances; Y08.89XA Assault by other specified means, initial encounter; Y93.89 Activity, other specified; Y92.89 Other specified places as the place of occurrence of the external cause; Y99.8 Other external cause status
CPT/HCPCS: 90471; 90715; 99283